=== PATIENT | female | born 2000 | race Caucasian/White ===

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

== ENCOUNTER 2024-01-17 07:24 | Emergency (ER) | payer BC, OTHER ==
[~2024-01-17] VITALS: Ht 162.6 cm; Wt 85.4 kg
[~2024-01-17 07:24] MED LIST changes: +BUPROPION HCL100 M1; +CLONIDINE HCL0.1 MG PO; +FLONASE ALLERG9.9 ML NAS; +GABAPENTIN100 MG; +PREDNISONE20 MG PO
[2024-01-17] MEDS ORDERED: LIDOCAINE 2% (VISCOUS) HCL 15 ML UDC MM ONE (07:45)
[2024-01-17] MEDS ORDERED: PERIDEX473 M1 MM (07:49)
[2024-01-17] MEDS ORDERED: LIDOCAINE HCL100 ML MT (08:04)
[2024-01-17 08:15] VITALS: BP 120/72
== END 2024-01-17 08:15 | disposition home or self-care (01) ==
LOC: ED 07:24
DX: O99.613 Diseases of the digestive system complicating pregnancy, third trimester (principal); K08.89 Other specified disorders of teeth and supporting structures; O99.513 Diseases of the respiratory system complicating pregnancy, third trimester; J45.909 Unspecified asthma, uncomplicated; Z3A.00 Weeks of gestation of pregnancy not specified; Z88.0 Allergy status to penicillin; Z88.1 Allergy status to other antibiotic agents; Z79.52 Long term (current) use of systemic steroids
CPT/HCPCS: 99282

== ENCOUNTER 2024-02-25 04:35 | Inpatient (IN) | payer BC, OTHER ==
[~2024-02-25 04:35] MED LIST changes: +LIDOCAINE HCL100 ML MT; +PERIDEX473 M1 MM
[2024-02-25 05:59] LABS: HEMATOCRIT 36.9 % (35.0-50.0); HEMOGLOBIN 13.1 g/dL (12.0-18.0); MCH 31.3 (27-36); MCHC 35.6 g/dl (30-36); MCV 87.9 fl (81-99); PLATELET COUNT 208 K/uL (140-440); RDW 14.1 (10.5-15.0)
[2024-02-25] MEDS ORDERED: OXYTOCIN/DEXTROSE 5% 20 UNITS/100 ML BAG IV SCH (06:00)
[2024-02-25] MEDS ORDERED: MAGNESIUM HYDROXIDE/AL HYDROX 30 ML CUP PO PRN ×2 (06:00→07:30)
[2024-02-25] MEDS ORDERED: CALCIUM CARBONATE 500 MG CHEW PO PRN ×2 (06:00→07:30)
[2024-02-25] MEDS ORDERED: LACTATED RINGER'S 1,000 ML IV PRN (06:00)
[2024-02-25] MEDS ORDERED: ROPIVACAINE 0.2% 200 ML BAG ONE (06:06)
[2024-02-25] MEDS ORDERED: LIDOCAINE HCL 2% 5 ML SDV ONE (06:06)
[2024-02-25] MEDS ORDERED: dexmedeTOMIDine HCl 200 MCG/2 ML VIAL ONE (06:06)
[2024-02-25] MEDS ORDERED: BUPIVACAINE HCL 0.25% 10 ML SDV INJ ONE (06:06)
[2024-02-25 06:23] LABS: AMPHETAMINES, URINE NEGATIVE (NEGATIVE); BARBITURATES, URINE NEGATIVE (NEGATIVE); BENZODIAZEPINE, URINE NEGATIVE (NEGATIVE); BUPRENORPHINE, URINE NEGATIVE (NEGATIVE); CANNABINOID, URINE POSITIVE (NEGATIVE); COCAINE, URINE NEGATIVE (NEGATIVE); ECSTASY, URINE NEGATIVE (NEGATIVE); FENTANYL, URINE NEGATIVE (NEGATIVE); METHADONE, URINE NEGATIVE (NEGATIVE); OPIATES, URINE NEGATIVE (NEGATIVE); OXYCODONE, URINE NEGATIVE (NEGATIVE); PHENCYCLIDINE, URINE NEGATIVE (NEGATIVE)
[2024-02-25] MEDS ORDERED: LACTATED RINGER'S 500 ML IV PRN (06:45)
[2024-02-25] MEDS ORDERED: LACTATED RINGER'S 2,000 ML IV ONE (06:45)
[2024-02-25] MEDS ORDERED: ePHEDrine sulfate 5 MG/ML SYRINGE IV PRN (06:45)
[2024-02-25 06:49] LABS: ABO O; ANTIBODY SCREEN NEGATIVE; RH POSITIVE
[2024-02-25] MEDS ORDERED: ACETAMINOPHEN 325 MG TAB PO PRN (07:30)
[2024-02-25] MEDS ORDERED: BENZOCAINE 60 ML AEROSOL TOP PRN (07:30)
[2024-02-25] MEDS ORDERED: OXYCODONE/APAP 5/325 TAB PO PRN (07:30)
[2024-02-25] MEDS ORDERED: HYDROCORTISONE ACETATE 25 MG SUPP PR PRN (07:30)
[2024-02-25] MEDS ORDERED: HYDROCODONE/ACETA 5/325 TAB PO PRN (07:30)
[2024-02-25] MEDS ORDERED: WITCH HAZEL/GLYCERIN 1 EA PAD TOP PRN (07:30)
[2024-02-25] MEDS ORDERED: IBUPROFEN 600 MG TAB PO PRN (07:30)
[2024-02-25] MEDS ORDERED: MAGNESIUM HYDROXIDE 30 ML UDC PO PRN (07:30)
[2024-02-25] MEDS ORDERED: OXYTOCIN/0.9 % SODIUM CHLORIDE 500 ML IV SCH (07:30)
[2024-02-25] MEDS ORDERED: SENNOSIDES/DOCUSATE 1 EA TAB PO SCH (09:00)
[2024-02-26 05:34] LABS: HEMATOCRIT 33.1 % (35.0-50.0); HEMOGLOBIN 11.8 g/dL (12.0-18.0); MCH 31.6 (27-36); MCHC 35.8 g/dl (30-36); MCV 88.2 fl (81-99); RBC 3.75 M/ul (4.3-5.7); RDW 13.8 (10.5-15.0)
== END 2024-02-27 10:20 | disposition home or self-care (01) | DRG 806 ==
LOC: FBCO 04:35 → FBC 05:40
PROVIDERS: Obstetrics & Gynecology; ADMIT Obstetrics & Gynecology; ATTEND Obstetrics & Gynecology
PROC: 10E0XZZ Delivery of Products of Conception, External Approach (ICD-10-PCS; principal; 2024-02-25)
PROC: 10907ZC Drainage of Amniotic Fluid, Therapeutic from Products of Conception, Via Natural or Artificial Opening (ICD-10-PCS; 2024-02-25)
DX: O99.344 Other mental disorders complicating childbirth (principal); E72.12 Methylenetetrahydrofolate reductase deficiency; Z37.0 Single live birth; F84.0 Autistic disorder; O99.354 Diseases of the nervous system complicating childbirth; O99.324 Drug use complicating childbirth; Z3A.38 38 weeks gestation of pregnancy; G43.909 Migraine, unspecified, not intractable, without status migrainosus; F12.90 Cannabis use, unspecified, uncomplicated; Z87.891 Personal history of nicotine dependence; Z88.8 Allergy status to other drugs, medicaments and biological substances; Z88.0 Allergy status to penicillin; O99.284 Endocrine, nutritional and metabolic diseases complicating childbirth
CPT/HCPCS: 36415; 80307; 85027; 85060; 86850; 86900; 86901; A9270; J2003; J2590; J2795; J7121